=== PATIENT | male | born 1975 | race Caucasian/White ===

== ENCOUNTER → 2023-01-30 | Outpatient (CLI) | payer OTHER ==
[~2023-01-30] MED LIST: BUSP5TA; COVI100V IM; CYCL5TAB; DULA4.5P; ELIQ5TAB PO; ENOX150I3 SC; ENOX40IN3 SC; ESCITALOPRAM; IRON65TA2 PO; LEXA1TAB PO; LIDOCAINE 1% MDV 20ML VIAL As Ordered ONE; LISI20TA37 PO; LOVE0.8I3 SC; METF-838; METO1TAB7; OMEP-173; ROSU5TAB5 PO; TRAZ-189 PO; VENL37.598; WARF-22 PO; XANA0.25 PO
[2023-01-30 11:00] LABS: INR 1.34; PROTHROMBIN TIME 16.8 SECONDS (12.5-14.5)
[2023-01-30 12:35] VITALS: BP 95/52
== END ==
LOC: M IRPRO 09:42
PROVIDERS: ATTEND Specialist
DX: C78.7 Secondary malignant neoplasm of liver and intrahepatic bile duct (principal)

== ENCOUNTER → 2023-02-17 | Outpatient (CLI) | payer OTHER ==
[~2023-02-17] MED LIST changes: +LEXA1TAB2 PO; +MIDAZOLAM INJ 2MG/2ML VIAL As Ordered ONE; +NS 1,000 ML IV SCH; +ONDA4TAB6 PO; +PROC10TA5 PO; +VANCOMYCIN 1000MG/20ML VIAL As Ordered ONE; +VANCOMYCIN HCL 1,000 MG, VIAL MATE ADAPTER 1 EACH in NS 250 ML IV ONE; +fentaNYL 100 MCG/2 ML INJECTION As Ordered ONE
[2023-02-17 13:10] VITALS: BP 100/55
== END ==
LOC: M IRPRO 09:08
PROVIDERS: ATTEND Specialist
DX: C25.9 Malignant neoplasm of pancreas, unspecified (principal)
CPT/HCPCS: 36561; 99152; 99153; C1769; C1788; C1894; J2250; J3010